=== PATIENT | female | born 1965 | race African-American/Black ===

== ENCOUNTER → 2020-04-12 | Emergency (ER) | payer OTHER ==
[~2020-04-12] VITALS: Ht 180.3 cm; Wt 95.3 kg
[~2020-04-12] MED LIST: AUGMENTIN 875-1 EAC1 ORAL
[2020-04-12 16:30] VITALS: BP 132/89
--- NOTE | 2020-04-12 17:08 | Emergency Room Report ---
History of Present Illness General Chief Complaint: Earache Source: Patient Present Illness HPI 54-year-old female with no signal past medical history here complaining of 2 days of left earache and pus drainage. Denies any hearing impairment. Denies any vertigo and dizziness. Denies fever and chills, sore throat, cough or congestion. Has not taken medication for symptom relief. Allergies: Coded Allergies: No Known Allergies (Unverified , 04/12/20) COVID-19 Screening Contact w/high risk pt: No Experienced COVID-19 symptoms?: No COVID-19 Testing performed EMERGENCY VETERINARY ASSISTANT: No Patient History Past Medical History: see triage record Past Surgical History: none Pertinent Family History: none Now: No Immunizations: UTD Reviewed Nursing Documentation: PMH: Agreed; PSxH: Agreed Nursing Documentation-PMH Hx Hypertension: Yes Hx Dialysis: Yes - M,W,F Review of Systems All Other Systems: negative except mentioned in HPI Physical Exam Vital Signs Date Time Temp Pulse Resp B/P (MAP) Pulse Ox O2 Delivery O2 Flow Rate FiO2 04/12/20 16:30 98.6 87 18 132/89 (103) 96 Room Air Sp02 EP Interpretation: reviewed, normal General Appearance: no apparent distress, alert, GCS 15, non-toxic Head: normocephalic, atraumatic Eyes: bilateral eye normal inspection, bilateral eye PERRL ENT: other - Left TM bulging with pus drainage Respiratory: chest non-tender, lungs clear, normal breath sounds, no rhonchi, no respiratory distress, no retraction, speaking full sentences Cardiovascular #1: regular rate, rhythm, no edema Gastrointestinal: soft Rectal: deferred Musculoskeletal: back normal Neurologic: alert, motor strength/tone normal, oriented x3, sensory intact, responsive, speech normal Psychiatric: judgement/insight normal, memory normal, mood/affect normal, no suicidal/homicidal ideation Skin: no rash Lymphatic: no adenopathy Medical Decision Making PA Attestation All my diagnosis and treatment plans were reviewed ad discussed with my supervising physician Dr. Manzo Diagnostic Impression: Primary Impression: Otitis media ER Course 54-year-old female with no signal past medical history here complaining of 2 days of left earache and pus drainage. Denies any hearing impairment. Denies any vertigo and dizziness. Denies fever and chills, sore throat, cough or congestion. Has not taken medication for symptom relief. Ddx considered but are not limited to: Otitis media, mastoiditis, otitis externa, cerumen impaction, URI, tonsillitis, peritonsillar abscess, influneza Vital signs: are WNL, pt. is afebrile H&PE are most consistent with: Otitis media ORDERS: Augmentin ED INTERVENTIONS: None required at this time. DISCHARGE: At this time pt. is stable for d/c to home. Will provide printed patient care instructions, and any necessary prescriptions. Care plan and follow up instructions have been discussed with the patient prior to discharge. Patient take medication as directed, follow primary care provider and ENT, if worsening symptoms return to the emergency room Last Vital Signs Date Time Temp Pulse Resp B/P (MAP) Pulse Ox O2 Delivery O2 Flow Rate FiO2 04/12/20 16:30 98.6 87 18 132/89 (103) 96 Room Air Disposition: HOME, SELF-CARE Condition: Stable Scripts Amoxicillin/Potassium Clav 875-125* (AUGMENTIN 875-125 TABLET*) 1 Each Tablet 1 TAB ORAL TWICE A DAY for 10 Days, #20 TAB Prov: Lenny Muñoz 04/12/20 Patient Instructions: Otitis Media, Adult, [id number] Additional Instructions: Take medication as directed, follow blood work primary care provider, follow-up with ENT, if worsening symptoms return to the emergency room Lenny Muñoz Apr 12, 2020 17:07
== END | disposition home or self-care (01) ==
LOC: EMR 17:10
DX: H66.42 Suppurative otitis media, unspecified, left ear (principal); I10 Essential (primary) hypertension
CPT/HCPCS: 99282